=== PATIENT | male | born 1980 | race Caucasian/White ===

== ENCOUNTER 2016-08-18 14:01 | Emergency (ER) | payer SELFPAY ==
[~2016-08-18] VITALS: Ht 180.3 cm; Wt 78.9 kg
[~2016-08-18 14:01] MED LIST: AMOX875T3 PO; HYDR-5688 PO; PRED10TA PO
[2016-08-18 14:03] VITALS: TEMP 36.8; Ht 180.3 cm; Wt 78.9 kg
--- NOTE | 2016-08-18 16:26 | DIAGNOSTIC IMAGING REPORT ---
SCROTAL ULTRASOUND CLINICAL HISTORY: Left testicular tenderness. COMPARISON STUDY: Scrotal ultrasound April 26, 2010. TECHNIQUE: Grayscale and color and duplex Doppler sonography of the scrotum was performed. FINDINGS: The right testis measures 5.8 x 3.1 x 3.5 cm and the left measures 5.9 x 3.6 x 2.8 cm. Color flow within each testis is symmetric. There is no testicular mass. There is no evidence of epididymitis. IMPRESSION: Normal scrotal ultrasound. No evidence of testicular torsion. No testicular mass. Electronically signed by: Arnaldo Smith M.D. 08/18/2016 4:25 PM Dictated Date/Time: 08/18/2016 4:24 PM
[2016-08-18] MEDS ORDERED: CEFTRIAXONE SOD 350MG/ML 1 GM VIAL IM STA (16:52)
[2016-08-18] MEDS ORDERED: OXYC1TAB3 PO (16:55)
[2016-08-18] MEDS ORDERED: DOXY100C2 PO (16:55)
[2016-08-18] MEDS ORDERED: DOXYCYCLINE HYCLATE 100 MG CAP PO ONE (17:00)
[2016-08-18 17:04] VITALS: BP 130/82; PULSE 59; O2SAT 98
--- NOTE | 2016-08-18 19:25 | EMERGENCY ROOM VISIT NOTE ---
History Report prepared by Donavan: Chucho Wise Under the Supervision of: Dr. Taqueria Ortgea M.D. First contact with patient: 14:21 Chief Complaint: TESTICULAR PAIN Stated Complaint: TESTICULAR PAIN History of Present Illness The patient is a 36 year old male who presents to the Emergency Room with complaints of waxing and waning bilateral testicular pain beginning one month prior to arrival. He describes the discomfort as pressure and rates his discomfort as a 5/10. He states his pain ranges from a dull ache to sharp, stabbing pain. The patient states he experienced discomfort in his left testicle first, and then both were involved. He associates intermittent nausea with intense episodes of pain. The patient notes he has also experienced looser stool than usual. He states he has not been sexually active for 6-7 months, and he denies sex with men. The patient denies a history of sexually transmitted diseases. He states his father had colon cancer at the age of 29. The patient notes his last colonoscopy was five years ago. He denies any medical problems. The patient denies a history of testicular cancer, recent unintended weight loss , fever, vomiting, abdominal pain, and urinary symptoms. Source of History: patient Onset: one month [employer] Position: other (testicles) Symptom Intensity: 5/10 Quality: ache, pressure, sharp, stabbing Timing: waxes/wanes Associated Symptoms: + nausea (intermittent), No abdominal pain, No fevers, No urinary symptoms, No vomiting Note: Associated symptoms: looser stool. Review of Systems See HPI for pertinent positives & negatives. A total of 10 systems reviewed and were otherwise negative. Past Medical & Surgical Medical Problems: (1) No pertinent past medical history Family History Cancer Social History Smoking Status: Current Every Day Smoker Marital Status: single Occupation Status: employed Current/Historical Medications Scheduled Doxycycline Hyclate (Vibramycin), 100 MG PO BID Scheduled PRN Oxycodone Ir (Roxicodone Ir), 5 MG PO Q4H PRN for Pain Allergies Coded Allergies: No Known Allergies (Unverified , 08/18/16) Physical Exam Vital Signs Date Time Temp Pulse Resp B/P Pulse Ox O2 Delivery O2 Flow Rate FiO2 08/18/16 17:04 59 16 130/82 98 Room Air 08/18/16 15:40 52 20 126/76 100 Room Air 08/18/16 14:03 36.8 89 18 160/84 98 Room Air Physical Exam Constitutional: Vital signs reviewed. Eyes: Pupils are equal round reactive to light. Conjunctiva are noninjected. ENT: Pharynx is clear without erythema or exudate. Mucous membranes are moist. Neck supple without meningeal signs. Respiratory: Clear to auscultation bilaterally. Breath sounds are equal bilaterally. Cardiovascular: Regular rate and rhythm. No rubs or gallops. GI: Soft, nondistended and nontender. Bowel sounds are present.No masses. : No inguinal hernia. Tenderness to the left testicle without masses appreciated. Normal cremasteric reflexes bilaterally. Musculoskeletal: No peripheral edema. Integumentary: No cyanosis. Neurological: The patient is awake and alert. No focal deficits. Psychiatric: Normal affect. Medical Decision & Procedures ER Provider Diagnostic Interpretation: US results as stated below per my review and radiologist interpretation. SCROTAL ULTRASOUND CLINICAL HISTORY: Left testicular tenderness. COMPARISON STUDY: Scrotal ultrasound April 26, 2010. TECHNIQUE: Grayscale and color and duplex Doppler sonography of the scrotum was performed. FINDINGS: The right testis measures 5.8 x 3.1 x 3.5 cm and the left measures 5.9 x 3.6 x 2.8 cm. Color flow within each testis is symmetric. There is no testicular mass. There is no evidence of epididymitis. IMPRESSION: Normal scrotal ultrasound. No evidence of testicular torsion. No testicular mass. Electronically signed by: Arnaldo Smith M.D. 08/18/2016 4:25 PM Laboratory Results Test 08/18/16 14:33 Laboratory results as reviewed by me. Medications Administered Medications (Trade) Dose Ordered Sig/Elisabet Route Start Time Stop Time Status Last Admin Dose Admin Ceftriaxone Sodium (Rocephin Im) 250 mg NOW STAT IM 08/18/16 16:52 08/18/16 16:54 DC 08/18/16 17:01 250 MG Doxycycline Hyclate (Vibramycin Cap) 100 mg ONE ONCE PO 08/18/16 17:00 08/18/16 17:01 DC 08/18/16 17:01 100 MG ED Course 1422: The patient was evaluated in room B9. A complete history and physical exam was performed. 1648: Reevaluated and updated the patient on his test results. The patient requested something stronger for pain. I gave precautions to pain medications and antibiotics. The patient will follow up with urology. Upon reevaluation, the patient appeared to have improvement of his symptoms. I discussed tonight's findings with him. He verbalized agreement of the treatment plan. The patient was discharged home. 1651: Ordered Rocephin Im 250 mg IM. 1699: Ordered Vibramycin Cap 100 mg PO. Medical Decision This is a 36-year-old male who presents with testicular pain. Differential diagnosis includes orchitis, epididymitis, torsion, mass, hydrocele. I did perform a limited focused review of portions of the patient's old chart on the electronic medical record. The patient has had no recent pertinent visits to this hospital. I did evaluate the patient as noted above. I did obtain a GC and chlamydia swab which is pending. I did order an ulcer and of the scrotum. I did review the images myself as well as the radiology report as described above. There is no evidence of acute abnormality. I did discuss the test results with the patient. I did advise that he follow up closely with his doctor as well as urology for further evaluation. He was told that he should follow up with his gastrologist for repeat colonoscopy given his change in stool caliber. He did request pain medication for his pain and was given a prescription for oxycodone. He was given precautions regarding this medication. I did treat him empirically with Rocephin 250 mg IM and doxycycline 100 mg orally. He was discharged with a prescription for doxycycline for 10 days. [place] Drug Monitoring Program Search Results: patient reviewed within database, no issues identified Impression Primary Impression: Testicular pain Scribe Attestation The scribe's documentation has been prepared under my direct and personally reviewed by me in its entirety. I confirm that the note above accurately reflects all work, treatment, procedures, and medical decision making performed by me. Departure Information Dispostion Home / Self-Care Prescriptions Doxycycline Hyclate (VIBRAMYCIN) 100 Mg Cap 100 MG PO BID for 10 Days, #19 CAP Prov: Taqueria Ortega M.D. 08/18/16 Oxycodone Ir (Roxicodone Ir) 5 Mg Tab 5 MG PO Q4H Y for Pain, #15 TAB Prov: Taqueria Ortega M.D. 08/18/16 Referrals No Doctor, Assigned (PCP) Forms HOME CARE DOCUMENTATION FORM, IMPORTANT VISIT INFORMATION, WORK / SCHOOL INSTRUCTIONS Patient Instructions ED Testicular Pain ALYSA, [facility] Additional Instructions You have been examined and treated today on an emergency basis only. This is not a substitute for, or an effort to provide, complete comprehensive medical care. It is impossible to recognize and treat all injuries or illnesses in a single emergency department visit. It is therefore important that you follow up closely with your physician and Dr. Leyva of urology. Call as soon as possible for an appointment. Return for worsening symptoms or if you develop fever, vomiting, abdominal pain, swelling or redness to your testicles or any other concerning symptoms.
[2016-08-20 15:34] LABS: CHLAMYDIA TRACH RNA*** NOT DETECTED (NOT DETECTED); GC (NEIS GONORRHOEAE)RNA** NOT DETECTED (NOT DETECTED)
== END 2016-08-18 17:21 | disposition home or self-care (01) ==
LOC: C.EDB 14:02
DX: N50.811 Right testicular pain (principal); N50.812 Left testicular pain; F17.200 Nicotine dependence, unspecified, uncomplicated; Z80.9 Family history of malignant neoplasm, unspecified

== ENCOUNTER → 2017-03-05 | Outpatient (CLI) | payer OTHER ==
[~2017-03-05] MED LIST changes: -AMOX875T3 PO; +DOXY100C2 PO; -HYDR-5688 PO; -PRED10TA PO
== END | disposition home or self-care (01) ==
LOC: C.LAB 02:03
DX: Z02.83 Encounter for blood-alcohol and blood-drug test (principal)

== ENCOUNTER 2017-04-05 16:18 | Emergency (ER) | payer OTHER ==
[~2017-04-05] VITALS: Ht 180.3 cm; Wt 84.0 kg
[2017-04-05 16:22] VITALS: Ht 180.3 cm; Wt 84.0 kg
[2017-04-05] MEDS ORDERED: SODIUM CHLORIDE 0.9% 500ML 500 ML IV STA (16:29)
[2017-04-05] MEDS ORDERED: ONDANSETRON INJ 2 MG/ML 2 ML VIAL IV STA (16:29)
[2017-04-05] MEDS ORDERED: OPTIRAY 320 IV PRN (16:45)
[2017-04-05 17:00] LABS: BASO % 0.4 %; BASO ABS # 0.02 K/uL (0-0.2); COMPLETE YES; EOS % 12.9 %; HEMATOCRIT 43.8 % (42-52); LYMPH % 19.2 %; LYMPH ABS # 0.91 K/uL (1.2-3.4); MEAN CORPUSCULAR HEMOGLOBIN 32.4 pg (25-34); MEAN CORPUSCULAR HGB CONC 35.2 g/dl (32-36); MEAN PLATELET VOLUME 10.8 fL (7.4-10.4); MONO % 11.4 %; NEUT % 56.1 %; PLATELET COUNT 195 K/uL (130-400); RED BLOOD COUNT 4.76 M/uL (4.7-6.1); WHITE BLOOD COUNT 4.74 K/uL (4.8-10.8)
[2017-04-05 17:29] LABS: CALCIUM 9.3 mg/dl (8.5-10.1); CREATININE 1.15 mg/dl (0.60-1.40); POTASSIUM 3.7 mmol/L (3.5-5.1)
[2017-04-05 17:45] LABS: URINE APPEARANCE CLEAR (CLEAR); URINE BILIRUBIN NEG (NEG); URINE COLOR YELLOW; URINE EPITHELIAL CELL AUTO 0-5 /lpf (0-5); URINE NITRITE NEG (NEG); URINE SPECIFIC GRAVITY 1.026 (1.000-1.030); UROBILINOGEN NEG (NEG); ZZUR CULT IF INDIC CLEAN CATCH NO
[2017-04-05 17:48] LABS: MANUAL MICROSCOPIC REQUIRED? NO; REVIEW REQ? NO
[2017-04-05 18:04] VITALS: TEMP 36.9
--- NOTE | 2017-04-05 18:29 | DIAGNOSTIC IMAGING REPORT ---
ABDOMEN AND PELVIS CT WITH IV CONTRAST CT DOSE: 419.73 mGy.cm HISTORY: lower abd pain TECHNIQUE: Multiaxial CT images of the abdomen and pelvis were performed following the use of intravenous contrast. A dose lowering technique was utilized adhering to the principles of ALARA. COMPARISON STUDY: Abdomen and pelvis CT 12/18/2010. FINDINGS: The lung bases are clear. No pneumoperitoneum. No pneumatosis. The liver, gallbladder, adrenal glands, pancreas, and kidneys are unremarkable. No retroperitoneal lymphadenopathy. Duplicated IVC. Tiny fat-containing umbilical hernia. The bladder is unremarkable. A few colonic diverticula. No bowel wall thickening or obstruction. Normal appendix. The spleen is mildly enlarged measuring 13 cm in length. This remains unchanged. IMPRESSION: 1. No change compared to the prior study. Stable mild spinal likely splenomegaly. 2. No bowel wall thickening or obstruction. 3. Normal appendix. Electronically signed by: Surinder Liang M.D. 04/05/2017 6:27 PM Dictated Date/Time: 04/05/2017 6:21 PM
[2017-04-05] MEDS ORDERED: FAMO20TA11 PO (18:43)
[2017-04-05] MEDS ORDERED: ONDA4TAB65 PO (18:43)
[2017-04-05 19:00] VITALS: BP 124/71; PULSE 60; O2SAT 98
--- NOTE | 2017-04-05 21:45 | EMERGENCY ROOM VISIT NOTE ---
History Report prepared by Donavan: Doug Mo Under the Supervision of: Dr. Tyrone Lee D.O. First contact with patient: 16:24 Chief Complaint: ABDOMINAL PAIN Stated Complaint: ABDOMINAL PAIN History of Present Illness The patient is a 36 year old male who presents to the Emergency Room with complaints of constant abdominal pain for the past 11 days. The patient states that he came to the realization that he was becoming an alcoholic, so he quite drinking 11 days ago, and since then he has been having this pain. He notes that he would drink a six pack a day or an eighth of liquor. He notes that he did not have shaking from withdrawal, though he was sweating more than usual. The patient states that passing gas improves the pain, and sitting hunched over worsens the pain. The patient states that he has been drinking for 17 years. He reports that he still has his appendix and gall bladder. Pt denies headache, change in vision, fevers, chest pain, shortness of breath, nausea, vomiting, diarrhea, pain with urination, and melena. Source of History: patient Onset: 11 days ago Position: abdomen Timing: constant Modifying Factors (Worsening): other (sitting hunched over) Modifying Factors (Relieving): other (passing gas) Note: Associated symptoms: sweating Review of Systems See HPI for pertinent positives & negatives. A total of 10 systems reviewed and were otherwise negative. Past Medical & Surgical Medical Problems: (1) No pertinent past medical history Family History Cancer Social History Smoking Status: Current Every Day Smoker Marital Status: single Occupation Status: employed Current/Historical Medications Scheduled Famotidine (Pepcid), 20 MG PO DAILY Scheduled PRN Ondansetron Hcl (Zofran), 4 MG PO TID PRN for Nausea Allergies Coded Allergies: No Known Allergies (Unverified , 04/05/17) Physical Exam Vital Signs Date Time Temp Pulse Resp B/P (MAP) Pulse Ox O2 Delivery O2 Flow Rate FiO2 04/05/17 19:00 60 18 124/71 98 04/05/17 18:04 36.9 57 16 115/68 100 Room Air 04/05/17 16:22 36.8 103 16 151/83 99 Room Air Physical Exam GENERAL: Sitting up in bed, alert, well appearing, well nourished, no distress, non-toxic EYE EXAM: normal conjunctiva. OROPHARYNX: no exudate, no erythema, lips, buccal mucosa, and tongue normal and mucous membranes are moist NECK: supple, no nuchal rigidity, no adenopathy, non-tender LUNGS: Clear to auscultation. Normal chest wall mechanics HEART: no murmurs, S1 normal and S2 normal ABDOMEN: Mild diffuse abdominal discomfort. Abdomen soft, normo-active bowel sounds, no masses, no rebound or guarding. BACK: Back is symmetrical on inspection and there is no deformity, no midline tenderness, no CVA tenderness. SKIN: no rashes and no bruising UPPER EXTREMITIES: upper extremities are grossly normal. LOWER EXTREMITIES: No pitting edema. NEURO EXAM: Normal sensorium, cranial nerves II-XII grossly intact, normal speech, no gross weakness of arms, no gross weakness of legs. Gross sensation intact. Medical Decision & Procedures ER Provider Diagnostic Interpretation: Radiology results as stated below per my review and the radiologist's interpretation: ABDOMEN AND PELVIS CT WITH IV CONTRAST CT DOSE: 419.73 mGy.cm HISTORY: lower abd pain TECHNIQUE: Multiaxial CT images of the abdomen and pelvis were performed following the use of intravenous contrast. A dose lowering technique was utilized adhering to the principles of ALARA. COMPARISON STUDY: Abdomen and pelvis CT 12/18/2010. FINDINGS: The lung bases are clear. No pneumoperitoneum. No pneumatosis. The liver, gallbladder, adrenal glands, pancreas, and kidneys are unremarkable. No retroperitoneal lymphadenopathy. Duplicated IVC. Tiny fat-containing umbilical hernia. The bladder is unremarkable. A few colonic diverticula. No bowel wall thickening or obstruction. Normal appendix. The spleen is mildly enlarged measuring 13 cm in length. This remains unchanged. IMPRESSION: 1. No change compared to the prior study. Stable mild spinal likely splenomegaly. 2. No bowel wall thickening or obstruction. 3. Normal appendix. Electronically signed by: Surinder Liang M.D. 04/05/2017 6:27 PM Dictated Date/Time: 04/05/2017 6:21 PM Laboratory Results 04/05/17 16:15 Red Blood Count 4.76, Mean Corpuscular Volume 92.0, Mean Corpuscular Hemoglobin 32.4, Mean Corpuscular Hemoglobin Concent 35.2, Mean Platelet Volume 10.8, Neutrophils (%) (Auto) 56.1, Lymphocytes (%) (Auto) 19.2, Monocytes (%) (Auto) 11.4, Eosinophils (%) (Auto) 12.9, Basophils (%) (Auto) 0.4, Neutrophils # (Auto ) 2.66, Lymphocytes # (Auto) 0.91, Monocytes # (Auto) 0.54, Eosinophils # (Auto ) 0.61, Basophils # (Auto) 0.02 04/05/17 16:15 Test 04/05/17 16:15 04/05/17 17:31 White Blood Count 4.74 K/uL (4.8-10.8) Red Blood Count 4.76 M/uL (4.7-6.1) Hemoglobin 15.4 g/dL (14.0-18.0) Hematocrit 43.8 % (42-52) Mean Corpuscular Volume 92.0 fL (80-100) Mean Corpuscular Hemoglobin 32.4 pg (25-34) Mean Corpuscular Hemoglobin Concent 35.2 g/dl (32-36) Platelet Count 195 K/uL (130-400) Mean Platelet Volume 10.8 fL (7.4-10.4) Neutrophils (%) (Auto) 56.1 % Lymphocytes (%) (Auto) 19.2 % Monocytes (%) (Auto) 11.4 % Eosinophils (%) (Auto) 12.9 % Basophils (%) (Auto) 0.4 % Neutrophils # (Auto) 2.66 K/uL (1.4-6.5) Lymphocytes # (Auto) 0.91 K/uL (1.2-3.4) Monocytes # (Auto) 0.54 K/uL (0.11-0.59) Eosinophils # (Auto) 0.61 K/uL (0-0.5) Basophils # (Auto) 0.02 K/uL (0-0.2) RDW Standard Deviation 44.2 fL (36.4-46.3) RDW Coefficient of Variation 13.2 % (11.5-14.5) Immature Granulocyte % (Auto) 0.0 % Immature Granulocyte # (Auto) 0.00 K/uL (0.00-0.02) Anion Gap 6.0 mmol/L (3-11) Est Creatinine Clear Calc Drug Dose 95.4 ml/min Estimated GFR () 95.0 Estimated GFR (Non- 82.0 BUN/Creatinine Ratio 12.0 (10-20) Calcium Level 9.3 mg/dl (8.5-10.1) Total Bilirubin 0.6 mg/dl (0.2-1) Direct Bilirubin 0.1 mg/dl (0-0.2) Aspartate Amino Transf (AST/SGOT) 17 U/L (15-37) Alanine Aminotransferase (ALT/SGPT) 23 U/L (12-78) Alkaline Phosphatase 62 U/L (45-117) Total Protein 8.1 gm/dl (6.4-8.2) Albumin 4.5 gm/dl (3.4-5.0) Lipase 204 U/L (73-393) Urine Color YELLOW Urine Appearance CLEAR (CLEAR) Urine pH 6.0 (4.5-7.5) Urine Specific [place] 1.026 (1.000-1.030) Urine Protein NEG (NEG) Urine Glucose (UA) NEG (NEG) Urine Ketones NEG (NEG) Urine Occult Blood NEG (NEG) Urine Nitrite NEG (NEG) Urine Bilirubin NEG (NEG) Urine Urobilinogen NEG (NEG) Urine Leukocyte Esterase NEG (NEG) Urine WBC (Auto) 1-5 /hpf (0-5) Urine RBC (Auto) 0-4 /hpf (0-4) Urine Hyaline Casts (Auto) 0 /lpf (0-5) Urine Epithelial Cells (Auto) 0-5 /lpf (0-5) Urine Bacteria (Auto) NEG (NEG) Laboratory results per my review. Medications Administered Medications (Trade) Dose Ordered Sig/Elisabet Route Start Time Stop Time Status Last Admin Dose Admin Sodium Chloride 500 ml @ 999 mls/hr Q31M STAT IV 04/05/17 16:29 04/05/17 16:59 DC 04/05/17 16:52 999 MLS/HR Ondansetron HCl (Zofran Inj) 4 mg NOW STAT IV 04/05/17 16:29 04/05/17 16:30 DC 04/05/17 16:52 4 MG ED Course ED COURSE: Vital signs were reviewed and showed tachycardia and situational hypertension The patients medical record was reviewed The above diagnostic studies were performed and reviewed. ED treatments and interventions as stated above. 1624: The patient was evaluated in room B6. A complete history and physical examination was performed. 1629: Zofran 4mg IV, Sodium Chloride 500 ml @ 999 mls/hr IV 1840: Upon reevaluation, the patient is doing better.I discussed my findings with the patient and he understands and agrees with the treatment plan. Based on the patients age, coexisting illnesses, exam and lab findings the decision to treat as an outpatient was made. The patient remained stable while under my care. The patient appeared well at the time of discharge. Medical Decision Differential diagnoses includes but is not limited to gastritis, peptic ulcer disease, GERD, gallbladder disease, pancreatitis, small bowel obstruction, acute coronary syndrome, pericarditis, ischemic bowel, irritable bowel disease, irritable bowel syndrome, appendicitis, diverticulitis, malignancy, hernia, urinary tract infection, torsion, perforation, trauma, infectious. Patient is a 36-year-old male who presents to ER for lower abdominal pain which has been present for the past week. Abdominal exam is fairly benign. No signs peritonitis. CBC all BMP, LFTs, bilirubin lipase unremarkable. UA was negative. Patient declined any pain medications. He was given IV fluids and Zofran. CT abdomen and pelvis is negative. He did feel better. He is discharged follow-up with PCP. Discussed with Pt concerning signs and symptoms to watch out for. Pt was instructed to follow up with their PCP and discussed with the patient their option to return to the ED at anytime for persistent or worsening symptoms. The appropriate anticipatory guidance and out-patient management, including indications for return to the emergency department, were explained at length to the patient and understood. Medication Reconcilliation Current Medication List: was personally reviewed by me Blood Pressure Screening Patient's blood pressure: Elevated blood pressure Blood pressure disposition: Elevated BP felt to be situational Impression Primary Impression: Abdominal pain Scribe Attestation The scribe's documentation has been prepared under my direction and personally reviewed by me in its entirety. I confirm that the note above accurately reflects all work, treatment, procedures, and medical decision making performed by me. Departure Information Dispostion Home / Self-Care Prescriptions Ondansetron Hcl (ZOFRAN) 4 Mg Tab 4 MG PO TID Y for Nausea, #20 TAB Prov: Tyrone Lee, DO 04/05/17 Famotidine (Pepcid) 20 Mg Tab 20 MG PO DAILY, #30 TAB Prov: Tyrone Lee, DO 04/05/17 Referrals No Doctor, Assigned (PCP) Forms Call Back Authorization, HOME CARE DOCUMENTATION FORM, IMPORTANT VISIT INFORMATION Patient Instructions Abdominal Pain - [facility], My [facility] Additional Instructions Please follow up with your primary care doctor or if you are a student, [facility] with in the next 24 hours. Any worsening of your symptoms, please return to the ED immediately. This includes any fevers greater than 100.4, worsening pain, chest pain, shortness breath, persistent nausea, dark tarry stools, blood in your stool, vomiting, unable to eat or drink, or any other concerning signs or symptoms from your standpoint. Problem Qualifiers Primary Impression: Abdominal pain Abdominal location: unspecified location Qualified Codes: R10.9 - Unspecified abdominal pain
== END 2017-04-05 19:02 | disposition home or self-care (01) ==
LOC: C.EDB 16:19
DX: R10.30 Lower abdominal pain, unspecified (principal); F17.200 Nicotine dependence, unspecified, uncomplicated; Z80.9 Family history of malignant neoplasm, unspecified